=== PATIENT | male | born 1955 | race Caucasian/White ===

== ENCOUNTER 2020-08-24 09:03 | Emergency (ER) | payer OTHER ==
[~2020-08-24] VITALS: Ht 185.4 cm; Wt 93.0 kg
[2020-08-24 12:28] VITALS: BP 135/104
[2020-08-24] MEDS ORDERED: HYDROcodone-ACET 5/325MG TAB PO ONE (13:00)
== END 2020-08-24 13:26 | disposition home or self-care (01) ==
LOC: ER 09:03
DX: M51.26 Other intervertebral disc displacement, lumbar region (principal); M54.42 Lumbago with sciatica, left side; M48.061 Spinal stenosis, lumbar region without neurogenic claudication; I10 Essential (primary) hypertension
CPT/HCPCS: 72131; 72192